=== PATIENT | female | born 1995 | race Caucasian/White ===

== ENCOUNTER 2025-05-06 16:07 | Emergency (ER) | payer SELFPAY ==
[~2025-05-06] VITALS: Ht 165.1 cm; Wt 68.0 kg
[2025-05-06 16:18] VITALS: BP 154/90; PULSE 71; RESP 16; TEMP 36.9; O2SAT 98; O2SAT 99
[2025-05-06 17:34] LABS: PLATELET 217 x1000/uL (130-400); RED BLOOD CELL COUNT 4.31 mill/uL (4.2-5.4); RED CELL DISTRIBUTION WIDTH 12.1 % (11.6-14.6)
[2025-05-06 17:46] LABS: CREATININE 0.7 mg/dL (0.6-1.0); UREA NITROGEN BLOOD 6 mg/dL (9-23)
[2025-05-06 17:47] LABS: TROPONIN I HIGH SENSITIVITY < 4 ng/L (3.0-34)
[2025-05-06 17:55] LABS: HCG SCREEN NEGATIVE
== END 2025-05-06 18:55 | disposition home or self-care (01) ==
LOC: ER 16:07
DX: R07.89 Other chest pain (principal)
CPT/HCPCS: 36415; 71045; 80048; 84484; 84703; 85027; 99285